=== PATIENT | female | born 1995 | race Caucasian/White ===

== ENCOUNTER → 2025-01-08 | Outpatient (CLI) | payer OTHER ==
[~2025-01-08] MED LIST: ANAPROX DS550 MG PO; ANTIVERT/2525 M1 PO; AUGMENTIN 875 M1 TAB PO; BIRTH CONTROL1 EAC1; CLINDAMYCIN HC300 MG PO; IBUPROFEN600 MG PO; LORTAB 480 ML480 ML PO; PRENATAL VITAM1 EAC4 PO; ZOFRAN ODT4 MG SL; [UNRECOGNIZED DRUG - OTHER]
[2025-01-10 11:07] LABS: TB1 Ag VALUE 0.08 IU/mL (.)
== END | disposition home or self-care (01) ==
LOC: LAB 17:24
PROVIDERS: ATTEND Family Medicine
DX: Z02.1 Encounter for pre-employment examination (principal)